=== PATIENT | female | born 1955 | race Caucasian/White ===

== ENCOUNTER → 2018-12-18 | Day surgery (SDC) | payer OTHER ==
[~2018-12-18] MED LIST: ATOR40TA59 PO; IV RINGERS,LACTATED 1000ML 1,000 ML IV ONE; LIDOCAINE 2% PF 5 ML VIAL. ONE; MULT-245 PO; PROPOFOL 20 ML IV ONE
--- NOTE | 2018-12-18 07:34 | HP ---
ADMIT DATE: 12/18/2018 UPDATED HISTORY AND PHYSICAL REFERRING PHYSICIAN: Dr. Leyva. REASON: Colorectal screening. HISTORY OF PRESENT ILLNESS: A 63-year-old female with past medical history significant for hyperlipidemia, status post tubal ligation, 2, para 2, seen for interval colonoscopy. Bowel habits are regular without diarrhea or constipation. There has been no melena and/or hematochezia. Weight and appetite are stable and family history is significant for a colon cancer with her grandfather in his mid to late 80s. Last colonoscopy done approximately 10 years ago was unrevealing per the patient. She otherwise is doing well, has no additional complaints. PAST MEDICAL HISTORY: Hyperlipidemia, status post tubal ligation, 2, para 2. ALLERGIES: None. MEDICATIONS: Include atorvastatin, multivitamin. SOCIAL HISTORY: She is a nondrinker, nonsmoker. FAMILY HISTORY: Significant for high blood pressure in multiple family members and colon cancer with an elderly grandfather. REVIEW OF SYSTEMS: Per records. PHYSICAL EXAMINATION: GENERAL: Reveals a well-nourished, well-developed female. VITAL SIGNS: Temp is 97, pulse 82, respiratory rate 18. HEENT: Normocephalic, atraumatic head. Pupils and extraocular muscles are not tested. Sclerae anicteric. NECK: Supple. LUNGS: Clear. CARDIOVASCULAR: Reveals S1, S2 without S3, S4 or appreciable murmur. ABDOMEN: Soft abdomen, normal bowel sounds, without appreciable hepatosplenomegaly. EXTREMITIES: Reveals no cyanosis, clubbing or edema. IMPRESSION AND PLAN: Colorectal screening is warranted at this time. Risks and benefits of procedure including risk of hemorrhage and perforation requiring operation have been discussed with the patient and she is willing to proceed. MILAGRO CRAIG MD DR: RAMAN/nii JOB#: [id number] / [id number] Rocky Wood MD
[2018-12-18 07:59] VITALS: BP 152/75
== END ==
LOC: SURG 06:11
PROVIDERS: ATTEND Internal Medicine Gastroenterology
DX: Z12.11 Encounter for screening for malignant neoplasm of colon (principal); K64.0 First degree hemorrhoids; K63.89 Other specified diseases of intestine; E78.5 Hyperlipidemia, unspecified; Z80.0 Family history of malignant neoplasm of digestive organs; Z98.51 Tubal ligation status; Z98.890 Other specified postprocedural states
CPT/HCPCS: 45378; J2001; J2704

== ENCOUNTER → 2020-04-26 | Outpatient (CLI) | payer OTHER ==
[2018-12-18 07:59] VITALS: BP 152/75
[~2020-04-26] MED LIST changes: -IV RINGERS,LACTATED 1000ML 1,000 ML IV ONE; -LIDOCAINE 2% PF 5 ML VIAL. ONE; -PROPOFOL 20 ML IV ONE
--- NOTE | 2020-04-26 13:46 | KCIC ---
Bilateral digital screening mammograms: Reason for examination: Routine screening. Comparison is made to previous study dated 11/29/2018. Interpretation was made with the benefit of CAD. The skin and nipples show no abnormalities. No abnormal axillary lymph nodes are seen. The breast par enchyma shows scattered fibroglandular density. (Breast density: Category B.) There continues to be s ome patchy parenchymal asymmetry posterior laterally in the right breast which is stable. There appea rs to be decreased parenchymal asymmetry posterior medially in the right breast. There are no new dom inant masses, suspicious calcifications or architectural distortions. Impression: No evidence of malignancy. Recommend routine screening. BI-RADS Category 2: Benign. "Our facility is accredited by the [employer] Mammography Program." This patient's information has been entered into a reminder system for the patient to be notified wit h the results of her examination and a target date for the next mammogram. Electronically signed by: Jessie Lea MD (04/26/2020 1:43 PM) [id number]
== END ==
LOC: KCIC MAMMO 10:19
PROVIDERS: ATTEND Family Medicine
DX: Z12.31 Encounter for screening mammogram for malignant neoplasm of breast (principal)
CPT/HCPCS: 77067